=== PATIENT | male | born 1995 | race Caucasian/White ===

== ENCOUNTER 2019-06-18 19:29 | Emergency (ER) | payer SELFPAY ==
[~2019-06-18] VITALS: Ht 167.6 cm; Wt 66.2 kg
[2019-06-18 19:34] VITALS: BP 144/93; PULSE 61; RESP 16; Ht 167.6 cm; Wt 66.2 kg
== END 2019-06-18 21:11 | disposition left against medical advice (07) ==
LOC: FTE 19:29
DX: Z53.21 Procedure and treatment not carried out due to patient leaving prior to being seen by health care provider (principal)